=== PATIENT | female | born 1935 | race Caucasian/White ===

== ENCOUNTER 2024-01-11 09:00 | Outpatient (RCR) | payer MEDICARE, SELFPAY ==
[2024-01-11 09:27] VITALS: BP 152/62; PULSE 66; RESP 18; TEMP 35.8; BMI 41.2
--- NOTE | 2024-01-11 11:16 | PCM.WC.HP ---
History of Present Illness Date of Service: 01/11/24 Chief Complaint: Non healing bilateral lower extremity ulcer History of Wound: Ms. Ritchie is an 88-year-old referred to the wound center by her PCP due to nonhealing bilateral lower extremity ulcers. Believes these where sustained over a month ago. She states that she noted a blister at that time but not sure when it became scabbed/ulcerated. Has tried some antibiotic ointment prescribed by her PCP without any significant improvement. Also recently on cephalexin and Bactrim due to concern for infection. No known history of diabetes, no tobacco abuse. Appetite is fair. She states that she recently had labs done by her PCP. [facility] Medical History (Updated 01/11/24 @ 12:[address] Ben Kovacs MD) Body mass index (BMI) greater than 40 Debility Ulcer of left lower extremity with fat layer exposed Ulcer of right lower extremity with fat layer exposed Venous insufficiency of both lower extremities Home Medications alprazolam 0.25 mg tablet 0.125 mg PO BID 01/11/24 [History Last Taken Unknown] cephalexin 500 mg capsule 500 mg PO BID 01/11/24 [History Last Taken Unknown] cyclobenzaprine 10 mg tablet 10 mg PO QHS PRN 01/11/24 [History Last Taken Unknown] gabapentin 600 mg tablet 600 mg PO BID 01/11/24 [History Last Taken Unknown] hydrocodone-acetaminophen 5-325mg 5mg-325mg 1 tab PO 01/11/24 [History Last Taken Unknown] levothyroxine 50 mcg tablet 50 mcg PO 01/11/24 [History Last Taken Unknown] Allergy/AdvReac Type Severity Reaction Status Date / Time doxycycline Allergy Mild Rash Verified 01/11/24 09:19 latex Allergy Mild Rash Verified 01/11/24 09:19 Penicillins Allergy Mild Rash Verified 01/11/24 09:19 Social History Smoking Status: Never smoker ROS Constitutional Constitutional: Denies body ache(s), chills, excessive sweating, fever(s), headache(s), lethargy or malaise Eyes Eyes: Denies blind spots, bloody eye, blurry vision, burning, change in eye color or discharge from eye(s) ENT HEENT: Denies dizziness, halitosis, headache(s), hearing loss, hoarseness, lip swelling or loss taste/smell Cardiovascular Cardiovascular: Reports edema; Denies bluish discoloration of hand/feet, chest pain at rest, cold extremities, diaphoresis, dizziness or dyspnea at rest Respiratory/Chest Respiratory/Chest: Denies difficulty clearing secretions, dyspnea, excessive phlegm production, hemoptysis, hoarseness, inability to speak or mouth breathing Gastrointestinal Gastrointestinal: Denies abdominal pain, belching, coffee ground emesis, cramping, dry heaves or hematemesis Genitourinary Genitourinary: Denies abdominal discomfort, movement or flank pain Musculoskeletal Musculoskeletal: Denies atrophy, numbness, tingling or tremors Integumentary Integumentary: Denies change in pigmentation, erythema, furuncle or jaundice Neurologic Neurologic: Denies abnormal movements, abnormal speech, behavior changes, burning sensations, disequilibrium, dizziness, headache(s), lack of coordination, memory loss or other visual disturbances Psychiatric Psychiatric: Denies behavioral changes, difficulty concentrating, hallucinations, irritability, memory loss, tactile hallucinations or visual hallucinations Endocrine Endocrinology: Denies change in body appearance, cold intolerance, deepening of the voice, excessive sweating, heat intolerance or increase in ring/shoe/hat size Hematologic/Lymphatic Hematologic/Lymphatic: Reports easy bruising; Denies easy bleeding Allergic/Immunologic Allergic/Immunologic: Denies itchy eyes, lip swelling, throat swelling, tongue swelling, hives, eczemia or wheezing Vital Signs Vital Signs Vital Signs: 01/11/24 09:27 Temperature 96.5 F L Temperature Source Temporal Pulse Rate 66 Respiratory Rate 18 Blood Pressure 152/62 H Blood Pressure Mean 92 Blood Pressure Source Monitor Blood Pressure Position Sitting Blood Pressure Location Left Arm Oxygen Delivery Method Room Air Weight Weight: 204 lb Body Mass Index (BMI) 41.2 Physical Exam Const alert, oriented x3 and no apparent distress General Appearance: cooperative, comfortable and well kempt HEENT normocephalic and head/scalp atraumatic Eyes EOMs intact bilaterally General Eye: normal appearance of both eyes Neck full ROM and supple General: normal visual inspection Resp normal respiratory effort and normal air movement Effort and Inspection: able to speak in complete sentences Cardio regular rate, regular rhythm, S1 normal heart sound and S2 normal heart sound GI soft to palpation and non-tender Extremity General Extremity: edema Skin Wounds: wounds noted Neuro oriented x3, CN's II-XII intact bilaterally, moves all extremities and no focal motor deficits Psych mental status grossly normal, thought process normal, cooperative and affect normal Debridement Note Debridement Note Wound debrided: Right lower extremity Type of Debridement: Excisional debridement Anesthesia Used: 4% Lidocaine Solution Depth: Down to and including healthy tissue and in the subcutaneous layer Percentage of wound debrided: 100 Instrument Used: 5mm curette Tissue Removed: Slough and devitalized tissue Severity: Fat Layer Exposed Amount of bleeding with debridement: Mild Bleeding Controlled with: Pressure Patient tolerated procedure: Patient tolerated procedure well Post-Debridement Measurements and Additional Note: Post-Debridement Measurements/Treatment - Nurse 1 - General Ulcer Assessment Start: 01/11/24 09:16 Freq: Status: Active Protocol: ePub DirectNILA Activity Type Activity Date Activity User E-sign Co-sign Detail Recorded Client Recorded Date Recorded By Document 01/11/24 09:27 KW Desktop 01/11/24 09:39 KW 01/11/24 09:27 - Today's Visit Information Type of service Initial Visit Arrival Mode Ambulatory,Cane ,Wheelchair Accompanied by daughter Patient Identification Verified (Name & Yes ) Height and Weight Height 4 ft 11 in Weight 204 lb Weight in Pounds 204.0 lbs Weight Measurement Method Estimated by Patient Body Mass Index (BMI) 41.2 BMI Classification Obese BSA - Jocelyn 1.86 Vital Signs Temperature (97.8 F-99.1 F) 96.5 F L Temperature Source Temporal Pulse Rate (60-100) 66 Pulse Location Monitor Respiratory Rate (12-18) 18 Respiratory rate source Observation Oxygen Delivery Method Room Air Blood Pressure (90/60-120/80) 152/62 H Blood Pressure Mean 92 Source Monitor Position Sitting Blood Pressure Location Left Arm History Since Last Visit- (Skip if this is Patient's initial visit) Left Footwear Regular Shoe Right Footwear Regular Shoe Pain Scale: 0-10 Numeric Is Patient Pain Free? Yes Lower Extremity Assessment/ Foot Assessment/ Toe Nail Assessment Right -Posterior Tibial Palpable No -Dorsalis Pedis Palpable Yes -Extremity Color Red, Hyperpigmented -Temperature of Extremity Cool -Thick No -Discolored No -Deformed No -Improper Length & Hygeine No Left -Posterior Tibial Palpable No -Dorsalis Pedis Palpable Yes -Extremity Color Red, Hyperpigmented -Hair Growth on Legs No -Hair Growth on Toes No -Temperature of Extremity Cool -Capillary Refill Less than 3 Seconds -Thick No -Discolored No -Deformed No -Improper Length & Hygeine No Teaching Assessment Preferences Verbal,Written, Demonstration Barriers to Learning None Readiness To Learn Excellent Willingness to Engage in Self Management High Activies Readiness to Engage in Self Management High Activities Anxiety Level Calm Cooperation Cooperative Perception Coherent Interest in Health Problem Asks Questions Education Importance Acknowledges Need Does Patient Smoke tobacco or other Yes substances Smoking Status Never smoker Is Patient Diabetic No Functional Assessment Recent Decline in Ability to Perform Denies Any Declines Culture/[place]/Food Preparation Kitchen Aide Cultural/[place] Needs that may affect No Treatment Plan Would you allow our [facility] computer game programmer to No meet you for the purpose of spiritual/ emotional support? Food Preparation Kitchen Aide to contact place of presybeterian No WC - Nurse 1 - General Ulcer Measurement Start: 01/11/24 09:16 Freq: Status: Active Protocol: Activity Type Activity Date Activity User E-sign Co-sign Detail Recorded Client Recorded Date Recorded By Document 01/11/24 09:27 KW Desktop 01/11/24 09:39 KW 01/11/24 09:27 Wound Center Nurse 1 #2 LT SANDRA -Current Size (cm) - Length 0.7 -Current Size (cm) - Width 0.5 -Current Size (cm) - Depth 0.1 -Total Square Cm 0.35 -Date of Last Picture (Recall this 01/11/24 field) -Wound Margin Distinct, Outline Attached -Texture (Rosmery-wound Skin Appearance) Assessed -Moisture (Rosmery-wound Skin Appearance) Assessed -Color (Rosmery-wound Skin Appearance) Assessed -Temperature (Rosmery-wound Skin No Abnormality Appearance) (Pt Warm) -Tenderness on Palpation (Rosmery-wound No Skin Appearance) -Ulcer Cleansing Rinsed/ Irrigated with Saline -Foul Odor after Cleansing No -Anesthetic Used 5% Lidocaine Gel #1 RT MED LE -Current Size (cm) - Length 1.7 -Current Size (cm) - Width 1.8 -Current Size (cm) - Depth 0.1 -Total Square Cm 3.06 -Date of Last Picture (Recall this 01/11/24 field) -Wound Margin Distinct, Outline Attached -Texture (Rosmery-wound Skin Appearance) Assessed -Moisture (Rosmery-wound Skin Appearance) Assessed -Color (Rosmery-wound Skin Appearance) Assessed -Temperature (Rosmery-wound Skin No Abnormality Appearance) (Pt Warm) -Tenderness on Palpation (Rosmery-wound No Skin Appearance) -Ulcer Cleansing Rinsed/ Irrigated with Saline -Foul Odor after Cleansing No -Anesthetic Used 5% Lidocaine Gel Right Calf (cm) 45 Right Ankle (cm) 27.5 Left Calf (cm) 49.5 Left Ankle (cm) 28 WC - Nurse 2 - General Ulcer CM Notes Start: 01/11/24 09:16 Freq: Status: Active Protocol: Activity Type Activity Date Activity User E-sign Co-sign Detail Recorded Client Recorded Date Recorded By Document 01/11/24 09:51 Desktop 01/11/24 09:59 01/11/24 09:51 Wound Center Nurse 2 #2 LT SANDRA -Time 09:51 -Correct Patient Yes -Correct Side, Site, Position Yes -Correct Procedure Yes -Procedure Performed Yes -Type of Procedure Debridement -Clinical Debridement Subcutaneous -Tissue Removed Subcutaneous -Post Debridement (cm) - Length 0.7 -Post Debridement (cm) - Width 0.7 -Post Debridement (cm) - Depth 0.1 -Total Square (Post) (cm) 0.49 -Area of Debridement (cm) - Length 0.7 -Area of Debridement (cm) - Width 0.7 -Total Square (Area) (cm) 0.49 -Tunneling No -Undermining/Tunneling No -Circular Undermining No -Wound/Ulcer Outcome Not Healed -Ulcer Cleansing Not Cleansed -Foul Odor after Cleansing No -Bioengineered Tissue No -Bleeding Controlled with Pressure -Treatment Response Procedure Tolerated Well -Debridement - Subq, 1st 20sq cm No #1 RT MED LE -Time 09:51 -Correct Patient Yes -Correct Side, Site, Position Yes -Correct Procedure Yes -Procedure Performed Yes -Type of Procedure Debridement -Clinical Debridement Subcutaneous -Tissue Removed Subcutaneous -Post Debridement (cm) - Length 1.4 -Post Debridement (cm) - Width 2.5 -Post Debridement (cm) - Depth 0.2 -Total Square (Post) (cm) 3.50 -Area of Debridement (cm) - Length 1.4 -Area of Debridement (cm) - Width 2.5 -Total Square (Area) (cm) 3.50 -Tunneling No -Undermining/Tunneling No -Circular Undermining No -Wound/Ulcer Outcome Not Healed -Ulcer Cleansing Rinsed/ Irrigated with Saline -Foul Odor after Cleansing No -Bioengineered Tissue No -Bleeding Controlled with Pressure -Treatment Response Procedure Tolerated Well -Debridement - Subq, 1st 20sq cm Yes Pain Scale: 0-10 Numeric Is Patient Pain Free? Yes WC - Nurse 3 - General Ulcer D/C NN Start: 01/11/24 09:16 Freq: Status: Active Protocol: Activity Type Activity Date Activity User E-sign Co-sign Detail Recorded Client Recorded Date Recorded By Document 01/11/24 10:12 KW Desktop 01/11/24 10:23 KW 01/11/24 10:12 Wound Care Center Nurse 3 #2 LT SANDRA -Primary Dressing Applied Aquacel Extra, NonAdherent Contact Layer -Primary Dressing Covered/Secured with Dry Gauze & Roll Gauze, Secured with Tape -Aquacel Extra 1 #1 RT MED LE -Primary Dressing Covered/Secured with Dry Gauze & Roll Gauze, Secured with Tape Right -Tubular Bandage Double Layer -Size of Tubigrip Used Size E -Size E ($) 2 Left -Tubular Bandage Double Layer -Size of Tubigrip Used Size E -Size E ($) 2 Pain Scale: 0-10 Numeric Is Patient Pain Free? Yes Additional Wound Wound debrided: Left lower extremity Type of Debridement: Excisional debridement Anesthesia Used: 4% Lidocaine Solution Depth: Down to and including healthy tissue and in the subcutaneous layer Percentage of wound debrided: 100 Instrument Used: 5mm curette Tissue Removed: Slough and devitalized tissue Severity: Fat Layer Exposed Amount of bleeding with debridement: Mild Bleeding Controlled with: Pressure Patient tolerated procedure: Patient tolerated procedure well Charges/Coding Visit Charges Office Visits / Consults: [id number] OV L4 New 45min Procedures Integumentary [id number]: [id number] Karoline subq tissue 20 sq cm/< Assessment/Plan Assessment/Plan (1) Ulcer of right lower extremity with fat layer exposed: CODE(S): L97.912 - Non-pressure chronic ulcer of unspecified part of right lower leg with fat layer exposed (2) Ulcer of left lower extremity with fat layer exposed: CODE(S): L97.922 - Non-pressure chronic ulcer of unspecified part of left lower leg with fat layer exposed (3) Venous insufficiency of both lower extremities: CODE(S): I87.2 - Venous insufficiency (chronic) (peripheral) (4) Debility: CODE(S): R53.81 - Other malaise (5) Body mass index (BMI) greater than 40: PLAN: Debridement done as documented above, procedure was well-tolerated. Good granulation tissue noted following debridement and scab removal. As above, currently on antibiotics which she completes tomorrow. No indication for culture at this time. She also states that she recently had labs done, records have been requested. Aquacel extra daily to twice daily depending on drainage. Cover with Adaptic and gauze. Double layer Tubigrip for edema management. Continue leg elevation, she states that she sleeps in a lift chair and typically has her lower extremities above her head. Protein supplements twice daily. Vitamin C, D and zinc also discussed. Daughter present during visit, their questions were answered and they were advised to let us know if they have any further questions or concerns. Follow-up in a week or sooner if needed. This note was generated with [employer] dictation software. It may contain incorrect words, spelling, and punctuation that were not noted in checking the note before signing.
--- NOTE | 2024-01-11 13:36 | WC ---
01/11/2024 (I) RIGHT MEDIAL LOWER EXTREMITY
== END 2024-02-02 23:59 | disposition home or self-care (01) ==
LOC: WC 09:00
PROVIDERS: PCP Family Medicine; Referring Provider Family Medicine; Visit Provider Internal Medicine
DX: L97.912 Non-pressure chronic ulcer of unspecified part of right lower leg with fat layer exposed (principal); L97.922 Non-pressure chronic ulcer of unspecified part of left lower leg with fat layer exposed; R53.81 Other malaise; I87.2 Venous insufficiency (chronic) (peripheral)
CPT/HCPCS: 11042; 99203; G0463

== ENCOUNTER → 2024-01-31 | Outpatient (CLI) | payer MEDICARE, SELFPAY ==
--- NOTE | 2024-01-31 10:00 | RAD_ITS ---
INDICATION: M96.1. Postlaminectomy syndrome. EXAMINATION/TECHNIQUE: X-RAY - XR Spine Lumbar 2 Views COMPARISON: None. FINDINGS: VERTEBRAE: Dextrocurvature of the upper lumbar spine with rightward lateral listhesis of L2 on L3.. Preserved lumbar lordosis without listhesis. Prior laminectomy with bilateral posterior transpedicular fixation L3, L4, L5, S1 without evidence of hardware failure.. No fracture or acute compression deformity. Mild chronic vertebral height loss at L1 and L2. . Facet arthropathy in the upper lumbar spine.. Bilateral hip arthroplasty partially seen. Moderate bilateral sacroiliac joint and pubic symphysis degenerative change. DISCS: Diffuse disc height loss with lower lumbar disc spacers or mineralization.. INCLUDED ABDOMEN: Included bowel gas pattern is non-obstructive.. Aortic atherosclerosis. RAD/Lumbar Spine 2 or 3 Views IMPRESSION: No evidence of acute injury. Lumbosacral internal fixation without evidence of hardware failure. 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
== END | disposition home or self-care (01) ==
LOC: RAD 09:50
PROVIDERS: PCP Family Medicine; Referring Provider Anesthesiology Pain Medicine; Visit Provider Anesthesiology Pain Medicine
DX: M96.1 Postlaminectomy syndrome, not elsewhere classified (principal)
CPT/HCPCS: 72100

== ENCOUNTER → 2024-03-27 | Outpatient (CLI) | payer MEDICARE, SELFPAY ==
[2024-03-27 10:33] LABS: Amphetamine Urine VISTA NEGATIVE (<1000 ng/mL); Barbiturate Urine VISTA NEGATIVE (< 200 ng/mL); Benzodiazepine Urine VISTA NEGATIVE (< 200 ng/mL); Cocaine Urine VISTA NEGATIVE (< 300 ng/mL); Ecstacy Urine VISTA NEGATIVE (< 500 ng/mL); Methadone Urine VISTA NEGATIVE (< 300 ng/mL); PCP Urine VISTA NEGATIVE (< 25 ng/mL); THC Urine VISTA NEGATIVE (< 50 ng/mL); Vista UDS pH Range 6
== END | disposition home or self-care (01) ==
LOC: LAB 09:43
PROVIDERS: PCP Family Medicine; Visit Provider Anesthesiology Pain Medicine
DX: F11.20 Opioid dependence, uncomplicated (principal)
CPT/HCPCS: 80307